=== PATIENT | male | born 1955 | race Caucasian/White ===

== ENCOUNTER 2023-05-23 13:13 | Inpatient (IN) | payer MEDICARE, MEDICAID ==
[~2023-05-23] VITALS: Ht 167.6 cm; Wt 84.1 kg
[~2023-05-23 13:13] MED LIST: iohexol 350MG/ML 100ml bottle IV ONE
[2023-05-23 14:31] LABS: BASOPHILS # (AUTO) 0.1 X10'3 (0-0.2); EOSINOPHILS # (AUTO) 0.1 X10'3 (0-0.9); LYMPHOCYTES # (AUTO) 1.5 X10'3 (1.1-4.8); LYMPHOCYTES % (AUTO) 25.6 % (21-51); MEAN CORPUSCULAR HEMOGLOBIN 26.5 PG (27.0-31.0); MEAN CORPUSCULAR HGB CONC 32.1 g/dL (33.0-36.5); MEAN CORPUSCULAR VOLUME 82.7 FL (78-98); MONOCYTES # (AUTO) 0.6 X10'3 (0-0.9); MONOCYTES % (AUTO) 9.9 % (2-12); NEUTROPHILS # (AUTO) 3.6 X10'3 (1.8-7.7); NEUTROPHILS % (AUTO) 61.5 % (42-75); PLATELET COUNT 513 X10'3 (140-440); RED BLOOD COUNT 2.52 X10'6 (4.70-6.10); RED CELL DISTRIBUTION WIDTH 16.5 % (11.5-14.5); WHITE BLOOD COUNT 5.8 X10'3 (4.5-11.0)
[2023-05-23 14:34] LABS: HEMATOCRIT 20.8 % (42.0-52.0); HEMOGLOBIN 6.7 g/dl (14.0-17.9)
[2023-05-23 14:48] LABS: APTT 27 SECONDS (22-32); PROTHROMBIN TIME 11.1 SECONDS (9.0-12.0)
[2023-05-23 14:51] LABS: ALANINE AMINOTRANSFERASE 29 U/L (12-78); ALBUMIN 3.6 G/DL (3.4-5.0); ALBUMIN/GLOBULIN RATIO 0.9 (1.1-1.5); ALKALINE PHOSPHATASE 76 IU/L (46-116); ANION GAP 10 (8-16); ASPARTATE AMINO TRANSFERASE 26 U/L (10-37); BILIRUBIN,TOTAL 0.2 MG/DL (0.1-1.0); BLOOD UREA NITROGEN 16 MG/DL (7-18); BUN/CREATININE RATIO 17.4 (10.0-20.0); CALCIUM 8.9 MG/DL (8.5-10.1); CHLORIDE 95 MMOL/L (99-107); CREATININE 0.92 MG/DL (0.60-1.10); GLUCOSE 92 MG/DL (70-104); POTASSIUM 4.7 MMOL/L (3.5-5.1); SODIUM 126 MMOL/L (135-145); TOTAL CARBON DIOXIDE 20.8 MMOL/L (24-32); TOTAL PROTEIN 7.5 G/DL (6.4-8.2); eCRCL 71 ML/MIN; eGFR 82 ML/MIN
[2023-05-23] MEDS ORDERED: normal saline 1000ml 1,000 ML IV ONE (19:10)
[2023-05-23] MEDS: LORazepam 2 mg/ml vial IV ONE ×2 (19:18→19:24)
[2023-05-23] MEDS: MESSAGE TO NURSING PO NR (19:57)
[2023-05-23] MEDS ORDERED: temazepam 15mg capsule PO PRN (21:00)
[2023-05-23 21:13] VITALS: BP 142/65; PULSE 87; RESP 18; TEMP 97.5
[2023-05-23 21:31] VITALS: BP 132/66; PULSE 88; RESP 18; TEMP 98.2
[2023-05-23 22:31] VITALS: BP 129/67; PULSE 86; RESP 18; TEMP 98
[2023-05-23] MEDS ORDERED: acetaminophen 325mg tablet PO PRN ×2 (22:40)
[2023-05-23] MEDS ORDERED: acetaminophen 650mg rectal suppository RC PRN (22:40)
[2023-05-23] MEDS ORDERED: diphenhydrAMINE 50 mg/ml inj IV PRN (22:40)
[2023-05-23] MEDS ORDERED: potassium Cl 40MEQ/1/2NS 520ml 520 ML IV PRN (22:40)
[2023-05-23] MEDS ORDERED: morphine 2 MG/ML inj. syringe IV PRN ×2 (22:40)
[2023-05-23] MEDS ORDERED: ondansetron/PF 4mg/2ml inj IV PRN (22:40)
[2023-05-23] MEDS ORDERED: diphenhydrAMINE 25mg capsule PO PRN (22:40)
[2023-05-23] MEDS ORDERED: mag hydrox/Alum hydrox/simeth 30ml oral suspension PO PRN (22:40)
[2023-05-23] MEDS ORDERED: HYDROcodone/acetaminophen 10/325mg tab PO PRN (22:40)
[2023-05-23] MEDS ORDERED: bisacodyl 10mg suppository rectal RC PRN (22:40)
[2023-05-23] MEDS ORDERED: magnesium hydroxide 30ml (MOM) UD suspension PO PRN (22:40)
[2023-05-23] MEDS ORDERED: HYDROcodone/acetaminophen 5mg/325mg tablet PO PRN (22:40)
[2023-05-23] MEDS ORDERED: ondansetron 4mg rapidly disintigrating tab PO PRN (22:40)
[2023-05-23 23:31] VITALS: BP 120/66; PULSE 82; RESP 16; TEMP 98.2
[2023-05-23 23:59] VITALS: BP 124/67; PULSE 78; RESP 16; TEMP 98.1
[2023-05-24 00:33] LABS: HEMOGLOBIN A1C 5.1 % (4.5-6.2)
[2023-05-24 00:57] LABS: PHOSPHORUS 3.8 MG/DL (2.3-4.5); PRO BRAIN NATRIURETIC PEPTIDE 307 PG/ML (0-125)
[2023-05-24 00:59] VITALS: BP 124/63; PULSE 79; RESP 18; TEMP 98.1
[2023-05-24 01:14] VITALS: BP 128/65; PULSE 76; RESP 18; TEMP 97.9
[2023-05-24 02:14] VITALS: BP 138/72; PULSE 75; RESP 16; TEMP 98.1
[2023-05-24 03:17] VITALS: BP 135/64; PULSE 75; RESP 18; TEMP 98.1
[2023-05-24] MEDS: normal saline 1000ml 1,000 ML IV SCH ×3 (03:24→19:11)
[2023-05-24] MEDS ORDERED: pantoprazole 40mg Tablet.DR PO SCH (07:30)
[2023-05-24] MEDS: docusate sod 100mg capsule PO SCH ×2 (07:40→19:48)
[2023-05-24] MEDS: nicotine 21mg patch - 24 hr TD SCH (07:41)
[2023-05-24 08:07] LABS: EOSINOPHILS # (AUTO) 0.1 X10'3 (0-0.9); HEMOGLOBIN 8.8 g/dl (14.0-17.9)
[2023-05-24 08:09] LABS: BASOPHILS # (AUTO) 0.1 X10'3 (0-0.2); BASOPHILS % (AUTO) 1.7 % (0-1); EOSINOPHILS % (AUTO) 1.6 % (0-6); HEMATOCRIT 26.7 % (42.0-52.0); LYMPHOCYTES # (AUTO) 1.2 X10'3 (1.1-4.8); LYMPHOCYTES % (AUTO) 22.4 % (21-51); MEAN CORPUSCULAR HEMOGLOBIN 28.3 PG (27.0-31.0); MEAN CORPUSCULAR VOLUME 85.8 FL (78-98); MONOCYTES # (AUTO) 0.6 X10'3 (0-0.9); NEUTROPHILS # (AUTO) 3.3 X10'3 (1.8-7.7); NEUTROPHILS % (AUTO) 63.3 % (42-75); PLATELET COUNT 374 X10'3 (140-440); RED BLOOD COUNT 3.11 X10'6 (4.70-6.10); RED CELL DISTRIBUTION WIDTH 16.4 % (11.5-14.5); WHITE BLOOD COUNT 5.2 X10'3 (4.5-11.0)
[2023-05-24 08:27] LABS: ALANINE AMINOTRANSFERASE 25 U/L (12-78); ALBUMIN 3.2 G/DL (3.4-5.0); ALBUMIN/GLOBULIN RATIO 0.9 (1.1-1.5); ALKALINE PHOSPHATASE 77 IU/L (46-116); ANION GAP 10 (8-16); ASPARTATE AMINO TRANSFERASE 16 U/L (10-37); BILIRUBIN,TOTAL 0.4 MG/DL (0.1-1.0); BLOOD UREA NITROGEN 10 MG/DL (7-18); BUN/CREATININE RATIO 12.3 (10.0-20.0); CALCIUM 8.2 MG/DL (8.5-10.1); CHLORIDE 99 MMOL/L (99-107); CHOL/HDL RATIO 2.3 (0.00-4.99); CHOLESTEROL 63 MG/DL (0-200); CREATININE 0.81 MG/DL (0.60-1.10); GLUCOSE 83 MG/DL (70-104); HDL CHOLESTEROL 27 MG/DL (35-60); LDL CHOLESTEROL 25 MG/DL (50-100); POTASSIUM 4.4 MMOL/L (3.5-5.1); SODIUM 130 MMOL/L (135-145); TOTAL CARBON DIOXIDE 21.5 MMOL/L (24-32); TOTAL PROTEIN 6.7 G/DL (6.4-8.2); TRIGLYCERIDES 63 MG/DL (20-135); eCRCL 81 ML/MIN; eGFR > 90 ML/MIN
[2023-05-24] MEDS: MESSAGE TO NURSING PO NR (10:07)
[2023-05-24] MEDS ORDERED: pantoprazole 40mg IV 40 MG in normal saline 100ml IV soln 100 ML IV SCH (15:30)
[2023-05-24] MEDS ORDERED: nicotine 21mg patch - 24 hr TD ONE (15:50)
[2023-05-24] MEDS: pantoprazole 40MG/NS 100ML BAG 100 ML IV SCH (16:00)
[2023-05-24 16:13] LABS: HEMATOCRIT 25.1 % (42.0-52.0); HEMOGLOBIN 8.1 g/dl (14.0-17.9); MEAN CORPUSCULAR HEMOGLOBIN 27.4 PG (27.0-31.0); MEAN CORPUSCULAR HGB CONC 32.3 g/dL (33.0-36.5); MEAN CORPUSCULAR VOLUME 84.9 FL (78-98); MEAN PLATELET VOLUME 6.8 FL (7.4-10.4); PLATELET COUNT 372 X10'3 (140-440); RED BLOOD COUNT 2.96 X10'6 (4.70-6.10); RED CELL DISTRIBUTION WIDTH 16.3 % (11.5-14.5); WHITE BLOOD COUNT 5.7 X10'3 (4.5-11.0)
--- NOTE | 2023-05-24 18:20 | NUR ---
called ortho to give report, nurse stated they will call me back.
--- NOTE | 2023-05-24 18:35 | NUR ---
Pt arrived to floor from ER.
[2023-05-24 18:50] VITALS: BP 139/58; PULSE 81; RESP 16; TEMP 98.6; O2SAT 99
[2023-05-24] MEDS ORDERED: METF-436 PO (19:49)
[2023-05-24] MEDS ORDERED: NICO-687 TOP (19:49)
[2023-05-24] MEDS ORDERED: ALBU17AE26 (19:49)
[2023-05-24] MEDS ORDERED: CITA40TA16 PO (19:49)
[2023-05-24] MEDS ORDERED: LISI20TA28 PO (19:49)
[2023-05-24] MEDS ORDERED: MONT-40 PO (19:49)
[2023-05-24] MEDS ORDERED: ATOR-2 PO (19:49)
[2023-05-24] MEDS ORDERED: DEXTROSE 15 GM of carb/4 tabs (each vial/BOTTLE has 4 tablets) PO PRN ×2 (20:45)
[2023-05-24] MEDS ORDERED: dextrose 50%-water 50ml dispensing syringe IV PRN ×2 (20:45)
[2023-05-24] MEDS ORDERED: glucagon, human recombinant 1mg kit SUBCUT PRN (20:45)
[2023-05-24] MEDS ORDERED: MESSAGE TO PHARMACY PO ONE (20:45)
[2023-05-24] MEDS ORDERED: insulin Lispro (HumaLOG) vial - multi-dose SQ SCH (20:45)
[2023-05-24] MEDS ORDERED: insulin glargine (Lantus) pen - multi-dose SQ SCH (21:00)
[2023-05-24 22:38] LABS: HEMOGLOBIN 7.6 g/dl (14.0-17.9); MEAN CORPUSCULAR HEMOGLOBIN 27.6 PG (27.0-31.0); MEAN CORPUSCULAR VOLUME 83.7 FL (78-98); PLATELET COUNT 359 X10'3 (140-440); RED BLOOD COUNT 2.75 X10'6 (4.70-6.10); RED CELL DISTRIBUTION WIDTH 16.6 % (11.5-14.5); WHITE BLOOD COUNT 6.9 X10'3 (4.5-11.0)
[2023-05-25] MEDS: normal saline 1000ml 1,000 ML IV SCH (05:36)
[2023-05-25 07:30] LABS: BASOPHILS # (AUTO) 0.1 X10'3 (0-0.2); BASOPHILS % (AUTO) 1.2 % (0-1); EOSINOPHILS # (AUTO) 0.2 X10'3 (0-0.9); HEMATOCRIT 27.6 % (42.0-52.0); HEMOGLOBIN 8.9 g/dl (14.0-17.9); LYMPHOCYTES # (AUTO) 1.6 X10'3 (1.1-4.8); LYMPHOCYTES % (AUTO) 28.2 % (21-51); MEAN CORPUSCULAR HEMOGLOBIN 27.8 PG (27.0-31.0); MEAN CORPUSCULAR HGB CONC 32.4 g/dL (33.0-36.5); MONOCYTES # (AUTO) 0.6 X10'3 (0-0.9); MONOCYTES % (AUTO) 10.4 % (2-12); NEUTROPHILS # (AUTO) 3.2 X10'3 (1.8-7.7); NEUTROPHILS % (AUTO) 56.2 % (42-75); PLATELET COUNT 399 X10'3 (140-440); RED BLOOD COUNT 3.21 X10'6 (4.70-6.10); RED CELL DISTRIBUTION WIDTH 16.3 % (11.5-14.5); WHITE BLOOD COUNT 5.6 X10'3 (4.5-11.0)
[2023-05-25 07:38] LABS: ALANINE AMINOTRANSFERASE 25 U/L (12-78); ALBUMIN 3.3 G/DL (3.4-5.0); ALKALINE PHOSPHATASE 76 IU/L (46-116); ANION GAP 11 (8-16); ASPARTATE AMINO TRANSFERASE 17 U/L (10-37); BILIRUBIN,TOTAL 0.3 MG/DL (0.1-1.0); BLOOD UREA NITROGEN 12 MG/DL (7-18); BUN/CREATININE RATIO 13.3 (10.0-20.0); CALCIUM 8.3 MG/DL (8.5-10.1); CHLORIDE 100 MMOL/L (99-107); GLUCOSE 87 MG/DL (70-104); MAGNESIUM 2.1 MG/DL (1.5-2.4); POTASSIUM 4.2 MMOL/L (3.5-5.1); SODIUM 134 MMOL/L (135-145); TOTAL CARBON DIOXIDE 23.4 MMOL/L (24-32); TOTAL PROTEIN 6.7 G/DL (6.4-8.2); eCRCL 73 ML/MIN; eGFR 84 ML/MIN
[2023-05-25] MEDS: pantoprazole 40MG/NS 100ML BAG 100 ML IV SCH (08:00)
[2023-05-25] MEDS ORDERED: atorvastatin 20mg tablet PO SCH (08:00)
[2023-05-25] MEDS ORDERED: citalopram 20mg tablet PO SCH (08:00)
[2023-05-25] MEDS ORDERED: montelukast 10mg tablet PO SCH (08:00)
[2023-05-25] MEDS ORDERED: lisinopril 20mg tablet PO SCH (08:00)
[2023-05-25] MEDS: docusate sod 100mg capsule PO SCH (08:51)
[2023-05-25 08:52] VITALS: BP_SYST 134; PULSE 67
[2023-05-25] MEDS: nicotine 21mg patch - 24 hr TD SCH (08:58)
[2023-05-25 09:09] LABS: FERRITIN 32 NG/ML (26-388)
[2023-05-25 09:14] LABS: % IRON SATURATION 4 % (11-46); IRON 14 UG/DL (53-167); TOTAL IRON BINDING CAPACITY 329 UG/DL (259-388)
[2023-05-25] MEDS ORDERED: pneumococcal 23-VAL P-sac vacc 25 mcg/0.5ml vial IMVAC ONE (10:00)
[2023-05-25] MEDS: MESSAGE TO NURSING PO NR (10:00)
[2023-05-25] MEDS ORDERED: aspirin 81mg tab.chew PO SCH (14:50)
[2023-05-25] MEDS ORDERED: clopidogrel 75mg tablet PO SCH (14:50)
[2023-05-25] MEDS ORDERED: ASPI81TA53 PO (16:11)
[2023-05-25] MEDS ORDERED: CLOP75TA34 PO (16:11)
[2023-05-25] MEDS ORDERED: PANT40TA54 PO (16:11)
--- NOTE | 2023-05-25 16:54 | NUR ---
patient discharged home. Plavix and baby aspirin given before discharge. IV removed. all paper work signed. Patient will follow up with for procedure.
[2023-05-25] MEDS ORDERED: pantoprazole 40mg Tablet.DR PO SCH (20:00)
== END 2023-05-25 16:46 | disposition home or self-care (01) | DRG 605 ==
LOC: ER 13:13 → ED HOLD 22:41 → ORTHO 4S 05-24 18:31
PROVIDERS: ADMIT Family Medicine; ATTEND Family Medicine
PROC: 30233N1 Transfusion of Nonautologous Red Blood Cells into Peripheral Vein, Percutaneous Approach (ICD-10-PCS; principal; 2023-05-23)
PROC: B4201ZZ Computerized Tomography (CT Scan) of Abdominal Aorta using Low Osmolar Contrast (ICD-10-PCS; 2023-05-23)
PROC: B4241ZZ Computerized Tomography (CT Scan) of Superior Mesenteric Artery using Low Osmolar Contrast (ICD-10-PCS; 2023-05-23)
PROC: B4281ZZ Computerized Tomography (CT Scan) of Bilateral Renal Arteries using Low Osmolar Contrast (ICD-10-PCS; 2023-05-23)
PROC: B42C1ZZ Computerized Tomography (CT Scan) of Pelvic Arteries using Low Osmolar Contrast (ICD-10-PCS; 2023-05-23)
PROC: B42H1ZZ Computerized Tomography (CT Scan) of Bilateral Lower Extremity Arteries using Low Osmolar Contrast (ICD-10-PCS; 2023-05-23)
PROC: B4211ZZ Computerized Tomography (CT Scan) of Celiac Artery using Low Osmolar Contrast (ICD-10-PCS; 2023-05-23)
DX: S30.1XXA Contusion of abdominal wall, initial encounter (principal); D62 Acute posthemorrhagic anemia; E87.1 Hypo-osmolality and hyponatremia; E78.00 Pure hypercholesterolemia, unspecified; X58.XXXA Exposure to other specified factors, initial encounter; F17.210 Nicotine dependence, cigarettes, uncomplicated; F41.9 Anxiety disorder, unspecified; I25.10 Atherosclerotic heart disease of native coronary artery without angina pectoris; I73.9 Peripheral vascular disease, unspecified; J44.9 Chronic obstructive pulmonary disease, unspecified; Z28.21 Immunization not carried out because of patient refusal; Z79.899 Other long term (current) drug therapy; Z71.6 Tobacco abuse counseling; Y93.89 Activity, other specified; Y92.89 Other specified places as the place of occurrence of the external cause; Y99.8 Other external cause status
CPT/HCPCS: 36415; 36430; 75635; 76881; 80053; 80061; 82728; 82948; 83036; 83540; 83550; 83735; 83880; 84100; 85025; 85027; 85610; 85730; 86885; 86900; 86901; 86920; 87081; 90732; 97110; 97161; 97530; 99285; C2617; C9113; G0378; J1815; J2060; J7030; P9016; Q9967

== ENCOUNTER 2023-07-07 14:55 | Day surgery (SDC) | payer MEDICARE, MEDICAID ==
[2023-07-04 08:27] LABS: BASOPHILS % (AUTO) 0.9 % (0-1); EOSINOPHILS # (AUTO) 0.1 X10'3 (0-0.9); EOSINOPHILS % (AUTO) 2.7 % (0-6); HEMATOCRIT 25.8 % (42.0-52.0); HEMOGLOBIN 8.3 g/dl (14.0-17.9); LYMPHOCYTES # (AUTO) 1.6 X10'3 (1.1-4.8); LYMPHOCYTES % (AUTO) 29.5 % (21-51); MEAN CORPUSCULAR HEMOGLOBIN 27.3 PG (27.0-31.0); MEAN CORPUSCULAR HGB CONC 32.1 g/dL (33.0-36.5); MEAN CORPUSCULAR VOLUME 84.8 FL (78-98); MEAN PLATELET VOLUME 7.2 FL (7.4-10.4); MONOCYTES # (AUTO) 0.6 X10'3 (0-0.9); NEUTROPHILS % (AUTO) 54.9 % (42-75); PLATELET COUNT 460 X10'3 (140-440); RED BLOOD COUNT 3.05 X10'6 (4.70-6.10); RED CELL DISTRIBUTION WIDTH 19.5 % (11.5-14.5); WHITE BLOOD COUNT 5.4 X10'3 (4.5-11.0)
[2023-07-04 08:36] LABS: ALBUMIN 3.6 G/DL (3.4-5.0); ANION GAP 8 (8-16); BLOOD UREA NITROGEN 16 MG/DL (7-18); BUN/CREATININE RATIO 16.7 (10.0-20.0); CHLORIDE 99 MMOL/L (99-107); CREATININE 0.96 MG/DL (0.60-1.10); GLUCOSE 94 MG/DL (70-104); POTASSIUM 5.2 MMOL/L (3.5-5.1); SODIUM 131 MMOL/L (135-145); TOTAL CARBON DIOXIDE 23.7 MMOL/L (24-32); eGFR 78 ML/MIN
[2023-07-04 08:43] LABS: APTT 29 SECONDS (22-32); PROTHROMBIN TIME 11.2 SECONDS (9.0-12.0)
[2023-07-04 09:39] LABS: PLATELET ESTIMATE INCREASED
[2023-07-04 09:44] LABS: ANISOCYTOSIS 2+; ELLIPTOCYTES 1+; HYPOCHROMASIA 1+; POLYCHROMASIA 1+; SCHISTOCYTES FEW
[~2023-07-07] VITALS: Ht 167.6 cm; Wt 79.3 kg
[~2023-07-07 14:55] MED LIST changes: +ALBU17AE26; +ASPI81TA53 PO; +ATOR-2 PO; +CITA40TA16 PO; +CLOP75TA34 PO; +LISI20TA28 PO; +METF-436 PO; +MONT-40 PO; +NICO-687 TOP; +PANT40TA54 PO; -iohexol 350MG/ML 100ml bottle IV ONE
[2023-07-07] MEDS ORDERED: atropine 0.1mg/ml 10ml syringe ONE (15:07)
[2023-07-07] MEDS ORDERED: phenylephrine 10mg/ml inj. -priapism dosing ONE (15:07)
[2023-07-07] MEDS ORDERED: LIDOcaine 1% 30ml preserv. free vial ONE (15:07)
[2023-07-07] MEDS ORDERED: heparin 1,000unit/ml 10ml vial 10 ML ONE (15:07)
[2023-07-07] MEDS ORDERED: DOPamine 400mg/D5W 250ml 250 ML IV ONE (15:07)
[2023-07-07] MEDS ORDERED: iohexol 350MG/ML 100ml bottle IV ONE (15:07)
[2023-07-07] MEDS ORDERED: diphenhydrAMINE 25mg capsule PO PRN (15:15)
[2023-07-07] MEDS ORDERED: normal saline 1,000 ML IV SCH (15:15)
[2023-07-07] MEDS ORDERED: LORazepam 0.5 MG tablet PO PRN (15:15)
[2023-07-07 15:41] LABS: BASOPHILS # (AUTO) 0.1 X10'3 (0-0.2); BASOPHILS % (AUTO) 1.3 % (0-1); EOSINOPHILS # (AUTO) 0.1 X10'3 (0-0.9); EOSINOPHILS % (AUTO) 2.1 % (0-6); HEMOGLOBIN 7.8 g/dl (14.0-17.9); LYMPHOCYTES # (AUTO) 1.5 X10'3 (1.1-4.8); MEAN CORPUSCULAR HEMOGLOBIN 27.5 PG (27.0-31.0); MEAN CORPUSCULAR HGB CONC 32.6 g/dL (33.0-36.5); MEAN CORPUSCULAR VOLUME 84.4 FL (78-98); MEAN PLATELET VOLUME 7.4 FL (7.4-10.4); MONOCYTES # (AUTO) 0.6 X10'3 (0-0.9); MONOCYTES % (AUTO) 10.4 % (2-12); NEUTROPHILS # (AUTO) 3.5 X10'3 (1.8-7.7); NEUTROPHILS % (AUTO) 60.2 % (42-75); PLATELET COUNT 437 X10'3 (140-440); RED BLOOD COUNT 2.85 X10'6 (4.70-6.10); RED CELL DISTRIBUTION WIDTH 18.8 % (11.5-14.5); WHITE BLOOD COUNT 5.7 X10'3 (4.5-11.0)
[2023-07-07 15:45] VITALS: BP 134/46; PULSE 94; RESP 16; TEMP 98.2; O2SAT 97
[2023-07-07] MEDS ORDERED: RIVA2.5T PO (16:21)
[2023-07-07] MEDS ORDERED: CRAMPS PO (16:21)
[2023-07-07] MEDS ORDERED: CITA40TA17 PO (16:21)
[2023-07-07] MEDS ORDERED: FLUT16SP11 BOTHNARES (16:21)
[2023-07-07] MEDS ORDERED: CLOP-32 PO (16:21)
[2023-07-07] MEDS ORDERED: ALBU8HFA PO (16:21)
[2023-07-07] MEDS ORDERED: ASPI-611 PO (16:21)
[2023-07-07] MEDS ORDERED: CITA20TA19 PO (16:21)
--- NOTE | 2023-07-07 16:30 | NUR ---
Dr. Rafi Grace notified of new H&H values. New orders received to cancel procedure. Addendum: 07/07/23 at 1637 by Randy Singh RN Amended: Links added.
== END 2023-07-07 16:45 | disposition home or self-care (01) ==
LOC: SSTAY O 14:55
PROVIDERS: ATTEND Student in an Organized Health Care Education/Training Program
DX: I65.23 Occlusion and stenosis of bilateral carotid arteries (principal); Z53.8 Procedure and treatment not carried out for other reasons; I10 Essential (primary) hypertension; E78.5 Hyperlipidemia, unspecified; I70.0 Atherosclerosis of aorta; G47.33 Obstructive sleep apnea (adult) (pediatric); E11.51 Type 2 diabetes mellitus with diabetic peripheral angiopathy without gangrene; I70.203 Unspecified atherosclerosis of native arteries of extremities, bilateral legs; Z86.73 Personal history of transient ischemic attack (TIA), and cerebral infarction without residual deficits; Z79.899 Other long term (current) drug therapy; Z79.82 Long term (current) use of aspirin
CPT/HCPCS: 36415; 80048; 82948; 85025; 85610; 85730; 93005; J1265; J1644; J2370; J3490; J7030; Q9967; 85008; A6258; C1894; J0461

== ENCOUNTER 2023-09-22 15:03 | Inpatient (IN) | payer MEDICARE, MEDICAID ==
[2023-09-22] VITALS (9 sets, daily range): BP systolic 77–149; BP diastolic 42–72; PULSE 59–75; RESP 12–17; TEMP 98.2; O2SAT 93–99
[~2023-09-22] VITALS: Ht 167.6 cm; Wt 78.6 kg
[~2023-09-22 15:03] MED LIST changes: -ALBU17AE26; +ALBU8HFA PO; +ASPI-611 PO; -ASPI81TA53 PO; +CITA20TA19 PO; -CITA40TA16 PO; +CITA40TA17 PO; +CLOP-32 PO; -CLOP75TA34 PO; +CRAMPS PO; +FLUT16SP11 BOTHNARES; -PANT40TA54 PO; +RIVA2.5T PO
[2023-09-22] MEDS ORDERED: atropine 0.1mg/ml 10ml syringe ONE (15:30)
[2023-09-22] MEDS ORDERED: LIDOcaine 1% (10mg/ml)w/preservative inj. 20ml MDV ONE (15:30)
[2023-09-22] MEDS ORDERED: iohexol 350MG/ML 100ml bottle IV ONE ×2 (15:30→18:28)
[2023-09-22] MEDS ORDERED: phenylephrine 10mg/ml inj. -priapism dosing ONE (15:30)
[2023-09-22] MEDS ORDERED: DOPamine 400mg/D5W 250ml 0 ML IV ONE (15:30)
[2023-09-22] MEDS ORDERED: heparin 1,000unit/ml 10ml vial 10 ML ONE (15:30)
[2023-09-22] MEDS ORDERED: LORazepam 0.5 MG tablet PO PRN (15:35)
[2023-09-22] MEDS ORDERED: diphenhydrAMINE 25mg capsule PO PRN (15:35)
[2023-09-22 16:16] LABS: BASOPHILS % (AUTO) 0.4 % (0-1); EOSINOPHILS # (AUTO) 0.2 X10'3 (0-0.9); EOSINOPHILS % (AUTO) 3.3 % (0-6); HEMATOCRIT 33.5 % (42.0-52.0); HEMOGLOBIN 11.1 g/dl (14.0-17.9); LYMPHOCYTES # (AUTO) 1.5 X10'3 (1.1-4.8); LYMPHOCYTES % (AUTO) 22.2 % (21-51); MEAN CORPUSCULAR HEMOGLOBIN 29.1 PG (27.0-31.0); MEAN CORPUSCULAR HGB CONC 33.2 g/dL (33.0-36.5); MEAN CORPUSCULAR VOLUME 87.8 FL (78-98); MEAN PLATELET VOLUME 7.6 FL (7.4-10.4); MONOCYTES # (AUTO) 0.8 X10'3 (0-0.9); MONOCYTES % (AUTO) 11.2 % (2-12); NEUTROPHILS # (AUTO) 4.3 X10'3 (1.8-7.7); NEUTROPHILS % (AUTO) 62.9 % (42-75); PLATELET COUNT 310 X10'3 (140-440); RED BLOOD COUNT 3.82 X10'6 (4.70-6.10); RED CELL DISTRIBUTION WIDTH 16.8 % (11.5-14.5); WHITE BLOOD COUNT 6.8 X10'3 (4.5-11.0)
[2023-09-22 16:24] LABS: ALBUMIN 3.4 G/DL (3.4-5.0); ANION GAP 9 (8-16); BLOOD UREA NITROGEN 13 MG/DL (7-18); BUN/CREATININE RATIO 15.7 (10.0-20.0); CALCIUM 8.6 MG/DL (8.5-10.1); CHLORIDE 97 MMOL/L (99-107); CREATININE 0.83 MG/DL (0.60-1.10); GLUCOSE 86 MG/DL (70-104); POTASSIUM 4.2 MMOL/L (3.5-5.1); SODIUM 130 MMOL/L (135-145); TOTAL CARBON DIOXIDE 24.1 MMOL/L (24-32); eCRCL 79 ML/MIN; eGFR > 90 ML/MIN
[2023-09-22 16:28] LABS: APTT 31 SECONDS (22-32); PROTHROMBIN TIME 11.1 SECONDS (9.0-12.0)
[2023-09-22] MEDS ORDERED: heparin 1,000 UNITS/NS 500ml 500 ML ONE (17:57)
[2023-09-22] MEDS ORDERED: clopidogrel 300mg tablet ONE (18:44)
[2023-09-22] MEDS: normal saline 1,000 ML IV SCH (19:00)
[2023-09-22] MEDS ORDERED: albuterol 2.5 MG/3 ML nebule NEB PRN (19:25)
[2023-09-22] MEDS ORDERED: DOPamine 400mg/D5W 250ml 250 ML IV PRN (19:30)
[2023-09-22] MEDS ORDERED: normal saline 1000ml 1,000 ML IV PRN (19:30)
[2023-09-22] MEDS ORDERED: metFORMIN 500mg tablet PO SCH (20:00)
[2023-09-22] MEDS ORDERED: acetaminophen 325mg tablet PO PRN (23:35)
[2023-09-22] MEDS: acetaminophen 325mg tablet PO PRN (23:53)
[2023-09-23] VITALS (14 sets, daily range): BP systolic 88–123; BP diastolic 33–65; PULSE 60–68; RESP 14–20; O2SAT 91–98
[2023-09-23] MEDS: normal saline 1,000 ML IV SCH (01:53)
[2023-09-23] MEDS ORDERED: atorvastatin 20mg tablet PO SCH (08:00)
[2023-09-23] MEDS ORDERED: montelukast 10mg tablet PO SCH (08:00)
[2023-09-23] MEDS ORDERED: aspirin 81mg, enteric-coated 1 TAB TABLET.DR PO SCH (08:00)
[2023-09-23] MEDS ORDERED: clopidogrel 75mg tablet PO SCH (08:00)
[2023-09-23] MEDS ORDERED: citalopram 20mg tablet PO SCH (08:00)
[2023-09-23] MEDS ORDERED: nicotine 21mg patch - 24 hr TD SCH (08:00)
[2023-09-23] MEDS: acetaminophen 325mg tablet PO PRN (08:10)
[2023-09-23] MEDS ORDERED: LIDOcaine 1% (10mg/ml)w/preservative inj. 20ml MDV ONE (08:20)
[2023-09-23] MEDS ORDERED: fentaNYL/PF 50MCG/1 ML 2ML syringe ONE (08:23)
[2023-09-23 09:03] LABS: CHOL/HDL RATIO 2.4 (0.00-4.99); CHOLESTEROL 78 MG/DL (0-200); HDL CHOLESTEROL 33 MG/DL (35-60); LDL CHOLESTEROL 32 MG/DL (50-100); TRIGLYCERIDES 52 MG/DL (20-135)
== END 2023-09-23 13:32 | disposition home or self-care (01) | DRG 36 ==
LOC: SSTAY O 15:03 → UNDOADMIN 19:19 → ICU 2S 19:19 → UNDODISIN 09-23 13:32
PROVIDERS: ADMIT Student in an Organized Health Care Education/Training Program; ATTEND Student in an Organized Health Care Education/Training Program
PROC: 037K34Z Dilation of Right Internal Carotid Artery with Drug-eluting Intraluminal Device, Percutaneous Approach (ICD-10-PCS; principal; 2023-09-22)
PROC: B41F1ZZ Fluoroscopy of Right Lower Extremity Arteries using Low Osmolar Contrast (ICD-10-PCS; 2023-09-22)
PROC: B3191ZZ Fluoroscopy of Right External Carotid Artery using Low Osmolar Contrast (ICD-10-PCS; 2023-09-22)
PROC: B3161ZZ Fluoroscopy of Right Internal Carotid Artery using Low Osmolar Contrast (ICD-10-PCS; 2023-09-22)
PROC: B3101ZZ Fluoroscopy of Thoracic Aorta using Low Osmolar Contrast (ICD-10-PCS; 2023-09-22)
DX: I65.23 Occlusion and stenosis of bilateral carotid arteries (principal); E78.5 Hyperlipidemia, unspecified; I10 Essential (primary) hypertension; R29.810 Facial weakness; E11.9 Type 2 diabetes mellitus without complications; Z79.82 Long term (current) use of aspirin; Z79.84 Long term (current) use of oral hypoglycemic drugs; Z86.73 Personal history of transient ischemic attack (TIA), and cerebral infarction without residual deficits
CPT/HCPCS: 36415; 37215; 70450; 80048; 80061; 82948; 85025; 85347; 85610; 85730; 93005; 99152; 99153; A6258; A6449; C1725; C1760; C1769; C1876; C1884; G0378; J0461; J1265; J1644; J2370; J3010; J3490; J7030; J7040; Q9967

== ENCOUNTER 2024-02-23 08:47 | Outpatient (CLI) | payer MEDICARE, MEDICAID ==
[~2024-02-23 08:47] MED LIST changes: -CITA40TA17 PO; -CRAMPS PO; -FLUT16SP11 BOTHNARES; -RIVA2.5T PO
[2024-02-23 09:35] LABS: ALBUMIN 3.7 G/DL (3.4-5.0); ANION GAP 9 (8-16); CALCIUM 8.7 MG/DL (8.5-10.1); CHLORIDE 97 MMOL/L (99-107); CREATININE 0.94 MG/DL (0.60-1.10); GLUCOSE 101 MG/DL (70-104); POTASSIUM 4.8 MMOL/L (3.5-5.1); SODIUM 131 MMOL/L (135-145); TOTAL CARBON DIOXIDE 24.8 MMOL/L (24-32); eGFR 80 ML/MIN
[2024-02-23 09:38] LABS: BLOOD UREA NITROGEN 14 MG/DL (7-18); BUN/CREATININE RATIO 14.9 (10.0-20.0)
[2024-02-23] MEDS ORDERED: iohexol 350MG/ML 100ml bottle IV ONE (09:48)
== END 2024-02-23 23:59 | disposition home or self-care (01) ==
LOC: RAD 08:47
PROVIDERS: ATTEND Internal Medicine Interventional Cardiology
DX: I65.23 Occlusion and stenosis of bilateral carotid arteries (principal); I10 Essential (primary) hypertension; E78.5 Hyperlipidemia, unspecified
CPT/HCPCS: 36415; 70498; 80048; J3490; Q9967

== ENCOUNTER 2024-03-29 14:43 | Inpatient (IN) | payer MEDICARE, MEDICAID ==
[2024-03-26 12:28] LABS: ALBUMIN 3.7 G/DL (3.4-5.0); ANION GAP 8 (8-16); BLOOD UREA NITROGEN 13 MG/DL (7-18); BUN/CREATININE RATIO 15.7 (10.0-20.0); CALCIUM 8.7 MG/DL (8.5-10.1); CHLORIDE 99 MMOL/L (99-107); CREATININE 0.83 MG/DL (0.60-1.10); GLUCOSE 95 MG/DL (70-104); POTASSIUM 4.8 MMOL/L (3.5-5.1); SODIUM 131 MMOL/L (135-145); TOTAL CARBON DIOXIDE 24.3 MMOL/L (24-32); eGFR > 90 ML/MIN
[2024-03-26 12:29] LABS: APTT 29 SECONDS (22-32); PROTHROMBIN TIME 10.9 SECONDS (9.0-12.0)
[2024-03-26 12:36] LABS: BASOPHILS # (AUTO) 0.1 X10'3 (0-0.2); BASOPHILS % (AUTO) 0.7 % (0-1); EOSINOPHILS # (AUTO) 0.2 X10'3 (0-0.9); EOSINOPHILS % (AUTO) 2.6 % (0-6); HEMATOCRIT 40.5 % (42.0-52.0); HEMOGLOBIN 13.2 g/dl (14.0-17.9); LYMPHOCYTES # (AUTO) 1.6 X10'3 (1.1-4.8); LYMPHOCYTES % (AUTO) 21.4 % (21-51); MEAN CORPUSCULAR HEMOGLOBIN 31.1 PG (27.0-31.0); MEAN CORPUSCULAR HGB CONC 32.7 g/dL (33.0-36.5); MEAN CORPUSCULAR VOLUME 95.1 FL (78-98); MONOCYTES # (AUTO) 0.6 X10'3 (0-0.9); MONOCYTES % (AUTO) 8.9 % (2-12); NEUTROPHILS # (AUTO) 4.8 X10'3 (1.8-7.7); NEUTROPHILS % (AUTO) 66.4 % (42-75); PLATELET COUNT 316 X10'3 (140-440); RED BLOOD COUNT 4.26 X10'6 (4.70-6.10); WHITE BLOOD COUNT 7.3 X10'3 (4.5-11.0)
[2024-03-29] VITALS (9 sets, daily range): BP systolic 126–163; BP diastolic 68–89; PULSE 72–96; RESP 16–18; TEMP 97.7–98.7; O2SAT 96–100
[~2024-03-29] VITALS: Ht 167.6 cm; Wt 86.0 kg
[2024-03-29] MEDS ORDERED: atropine 0.1mg/ml 10ml syringe ONE (14:57)
[2024-03-29] MEDS ORDERED: iohexol 350MG/ML 100ml bottle IV ONE (14:57)
[2024-03-29] MEDS ORDERED: phenylephrine 10mg/ml inj. -priapism dosing ONE (14:57)
[2024-03-29] MEDS ORDERED: LIDOcaine 1% 30ml preserv. free vial ONE (14:57)
[2024-03-29] MEDS ORDERED: DOPamine 400mg/D5W 250ml 0 ML IV ONE (14:57)
[2024-03-29] MEDS ORDERED: heparin 1,000unit/ml 10ml vial 10 ML ONE (14:57)
[2024-03-29] MEDS ORDERED: diphenhydrAMINE 25mg capsule PO PRN (15:00)
[2024-03-29] MEDS: normal saline 1,000 ML IV SCH (15:17)
[2024-03-29] MEDS: LORazepam 0.5 MG tablet PO PRN (15:17)
[2024-03-29] MEDS ORDERED: clopidogrel 300mg tablet ONE (17:15)
[2024-03-29] MEDS ORDERED: hydrALAZINE 20mg/ml inj. IV PRN (18:05)
[2024-03-29] MEDS ORDERED: albuterol 2.5 MG/3 ML nebule NEB PRN (18:05)
[2024-03-29] MEDS ORDERED: pseudoephedrine 30mg tablet PO PRN (18:05)
[2024-03-29] MEDS ORDERED: proCHLORperazine 10 MG/2 ml inj IV PRN (18:05)
[2024-03-29] MEDS ORDERED: acetaminophen 325mg tablet PO PRN (18:05)
[2024-03-29] MEDS ORDERED: HYDROcodone/acetaminophen 5mg/325mg tablet PO PRN (18:05)
[2024-03-29] MEDS ORDERED: DOPamine 400mg/D5W 250ml 250 ML IV SCH (18:05)
[2024-03-29] MEDS ORDERED: metFORMIN 500mg tablet PO SCH (20:00)
[2024-03-30 02:00] VITALS: BP 136/84; PULSE 80; RESP 16; TEMP 98.3; O2SAT 98
[2024-03-30 07:00] VITALS: BP 146/60; PULSE 78; RESP 16; TEMP 97.7; O2SAT 98
[2024-03-30] MEDS: HYDROcodone/acetaminophen 10/325mg tab PO PRN (07:51)
[2024-03-30 08:00] VITALS: RESP 16; O2SAT 98
[2024-03-30] MEDS: clopidogrel 75mg tablet PO SCH (10:06)
[2024-03-30 10:09] VITALS: BP_SYST 148; PULSE 78
[2024-03-30] MEDS: atorvastatin 20mg tablet PO SCH (10:09)
[2024-03-30] MEDS: citalopram 20mg tablet PO SCH (10:09)
[2024-03-30] MEDS: lisinopril 20mg tablet PO SCH (10:09)
[2024-03-30] MEDS: aspirin 81mg, enteric-coated 1 TAB TABLET.DR PO SCH (10:10)
[2024-03-30] MEDS: montelukast 10mg tablet PO SCH (10:10)
== END 2024-03-30 11:06 | disposition home or self-care (01) | DRG 254 ==
LOC: SSTAY O 14:43 → PCU 3S 17:20
PROVIDERS: ADMIT Student in an Organized Health Care Education/Training Program; ATTEND Student in an Organized Health Care Education/Training Program
PROC: 037 Upper Arteries, Dilation (ICD-10-PCS; principal; 2024-03-29)
PROC: 037K3ZZ Dilation of Right Internal Carotid Artery, Percutaneous Approach (ICD-10-PCS; 2024-03-29)
PROC: B41G1ZZ Fluoroscopy of Left Lower Extremity Arteries using Low Osmolar Contrast (ICD-10-PCS; 2024-03-29)
PROC: B3191ZZ Fluoroscopy of Right External Carotid Artery using Low Osmolar Contrast (ICD-10-PCS; 2024-03-29)
PROC: B3131ZZ Fluoroscopy of Right Common Carotid Artery using Low Osmolar Contrast (ICD-10-PCS; 2024-03-29)
PROC: B3161ZZ Fluoroscopy of Right Internal Carotid Artery using Low Osmolar Contrast (ICD-10-PCS; 2024-03-29)
DX: T82.856A Stenosis of peripheral vascular stent, initial encounter (principal); Y83.8 Other surgical procedures as the cause of abnormal reaction of the patient, or of later complication, without mention of misadventure at the time of the procedure; I65.21 Occlusion and stenosis of right carotid artery; E78.5 Hyperlipidemia, unspecified; Y92.89 Other specified places as the place of occurrence of the external cause; I10 Essential (primary) hypertension; Z79.84 Long term (current) use of oral hypoglycemic drugs; Z86.73 Personal history of transient ischemic attack (TIA), and cerebral infarction without residual deficits
CPT/HCPCS: 36222; 36415; 37247; 76937; 80048; 82948; 85025; 85610; 85730; 93005; A6258; C1725; C1760; C1769; C1884; C1887; G0378; J0461; J1265; J1644; J2370; J3490; J7030; Q9967

== ENCOUNTER 2024-04-22 11:39 | Emergency (ER) | payer MEDICARE, MEDICAID ==
[~2024-04-22] VITALS: Ht 167.6 cm; Wt 86.0 kg
[~2024-04-22 11:39] MED LIST changes: -NICO-687 TOP
[2024-04-22] MEDS: acetaminophen 325mg tablet PO ONE (13:30)
[2024-04-22] MEDS: TETanus/Pertussis (Acell)/Diphther VAC/PF (Tdap-Adult) 0.5ml syringe IMVAC ONE (13:31)
[2024-04-22] MEDS: bacitracin 15gm ointment TP ONE (13:31)
[2024-04-22 14:00] VITALS: BP 135/63; PULSE 70; RESP 18; TEMP 99; O2SAT 98
== END 2024-04-22 14:01 | disposition home or self-care (01) ==
LOC: ER 11:40
DX: S01.111A Laceration without foreign body of right eyelid and periocular area, initial encounter (principal); S06.0X0A Concussion without loss of consciousness, initial encounter; E78.00 Pure hypercholesterolemia, unspecified; M25.531 Pain in right wrist; Z79.899 Other long term (current) drug therapy; W01.0XXA Fall on same level from slipping, tripping and stumbling without subsequent striking against object, initial encounter; Y93.89 Activity, other specified; Y92.89 Other specified places as the place of occurrence of the external cause; Y99.8 Other external cause status
CPT/HCPCS: 12011; 70450; 73130; 90715; 99285; A6258; A6402; G0008; J7030; Z7610; 90471; A6449